=== PATIENT | female | born 1950 ===

== ENCOUNTER 2017-04-03 17:53 | Emergency (ER) | payer MEDICARE, MEDICAID ==
[2017-04-03 17:53] VITALS: BMI 29.8
[2017-04-03 20:18] LABS: BASO % 0.1 % (0.0-2.0); EOS % 0.1 % (0.0-4.0); HEMATOCRIT 38.8 % (34.0-47.0); LYMPH # 0.5 K/uL (1.0-4.3); LYMPH % 4.8 % (20.0-40.0); MEAN CELL VOLUME 93.2 fL (81.0-99.0); MEAN CORPUSCULAR HEMOGLOBIN 30.5 pg (27.0-31.0); MEAN CORPUSCULAR HGB CONC 32.7 g/dL (33.0-37.0); MEAN PLATELET VOLUME 10.3 fL (7.2-11.7); MONO # 0.8 K/uL (0.0-0.8); MONO % 6.9 % (0.0-10.0); PLATELET COUNT 257 K/uL (130-400)
[2017-04-03 20:29] LABS: CHLORIDE 101 mmol/L (98-107); SODIUM 139 mmol/L (132-148)
[2017-04-03 20:31] LABS: GFR AFRICAN-AMERICAN > 60
[2017-04-03 20:32] LABS: ALB/GLOB RATIO 1.1 (1.0-2.1); ALKALINE PHOSPHATASE 68 U/L (38-126); ALT/SGPT 35 U/L (9-52); AST/SGOT 35 U/L (14-36); BILIRUBIN,TOTAL 0.9 mg/dL (0.2-1.3); BLOOD UREA NITROGEN 17 mg/dL (7-17); CALCIUM 8.2 mg/dl (8.6-10.4); CARBON DIOXIDE 23 mmol/L (22-30); GLUCOSE,RANDOM 142 mg/dL (65-105); TOTAL PROTEIN 8.8 g/dL (6.3-8.3)
--- NOTE | 2017-04-03 20:47 | C.PDOC ---
History Of Present Illness Patient presents to the ER with a complaint of nausea and vomiting that began today. Patient states she feels weak and tired. Denies fever and chills. Time Seen by Provider: 04/03/17 20:08 Chief Complaint (Nursing): Abdominal Pain History Per: Patient History/Exam Limitations: no limitations Onset/Duration Of Symptoms: Hrs (Began today) Current Symptoms Are (Timing): Still Present Context: Other (Unknown) Severity: Moderate Pain Scale Rating Of: 4 Radiation Of Pain To:: None Quality Of Discomfort: Other (Weak/Tired) Associated Symptoms: Nausea, Vomiting. denies: Fever, Chills Exacerbating Factors: None Alleviating Factors: None Last Bowel Movement: Other (Unknown) Recent travel outside of the [place]: No Additional History Per: Family Abnormal Vaginal Bleeding: No Past Medical History Reviewed: Historical Data, Nursing Documentation, Vital Signs Vital Signs: Last Vital Signs Temp 98.2 F 04/03/17 18:46 Pulse 82 04/03/17 18:46 Resp 18 04/03/17 18:46 BP 100/64 04/03/17 18:46 Pulse Ox 95 04/03/17 21:48 - Medical History PMH: HTN, Hypercholesterolemia - [facility] Procedures DX ULTRASOUND-HEART (05/14/13) Family History: States: No Known Family Hx - Social History Hx Alcohol Use: No Hx Substance Use: No - Immunization History Hx Tetanus Toxoid Vaccination: No Review Of Systems Constitutional: Negative for: Fever, Chills ENT: Negative for: Throat Pain Cardiovascular: Negative for: Chest Pain Respiratory: Negative for: Shortness of Breath Gastrointestinal: Positive for: Nausea, Vomiting Musculoskeletal: Negative for: Back Pain Skin: Negative for: Rash, Lesions, Jaundice Neurological: Negative for: Weakness Psych: Positive for: Anxiety Physical Exam - Physical Exam Appears: Non-toxic Skin: Warm, Dry Head: Normacephalic Oral Mucosa: Moist Neck: Supple Chest: Symmetrical, No Tenderness Cardiovascular: Rhythm Regular, No Murmur Respiratory: No Rales, No Rhonchi, No Wheezing Gastrointestinal/Abdominal: Soft, Tenderness (Diffuse), No Guarding, No Rebound Back: Normal Inspection Extremity: Normal ROM Extremity: Bilateral: Atraumatic, Normal Color And Temperature Neurological/Psych: Oriented x3, Normal Speech Gait: Steady ED Course And Treatment - Laboratory Results Result Diagrams: 04/03/17 20:11 04/03/17 20:11 O2 Sat by Pulse Oximetry: 95 (Room air) Pulse Ox Interpretation: Normal Progress Note: Blood work ordered Reevaluation Time: 00:36 Reassessment Condition: Improved Disposition Counseled Patient/Family Regarding: Studies Performed, Diagnosis, Need For Followup - Disposition Referrals: Jean Claude Glass MD [Staff Provider] - Disposition Time: 20:47 Condition: FAIR Prescriptions: Metronidazole [Flagyl] 500 mg PO TID #21 tablet Ondansetron ODT [Zofran ODT] 1 odt PO BID PRN #10 odt PRN Reason: Nausea/Vomiting Instructions: Abdominal Pain (ED), Gas and Bloating (ED) - Clinical Impression Clinical Impression: Abdominal pain, Nausea - Scribe Statement The provider has reviewed the documentation as recorded by the Scribwyatt Romo All medical record entries made by the Scribe were at my direction and personally dictated by me. I have reviewed the chart and agree that the record accurately reflects my personal performance of the history, physical exam, medical decision making, and the department course for this patient. I have also personally directed, reviewed, and agree with the discharge instructions and disposition.
[2017-04-03] MEDS ORDERED: Potassium Chloride 10 mEq ER Tab PO STA (22:31)
[2017-04-03] MEDS ORDERED: Morphine 4 MG/ML VIAL IV STA (22:32)
[2017-04-03] MEDS ORDERED: Sodium Chloride 0.9% 1,000 ML IV ONE (22:33)
[2017-04-03] MEDS ORDERED: Sodium Chloride 0.9% 1,000 ML ONE (22:37)
[2017-04-03] MEDS ORDERED: Potassium Chloride 20 mEq ER Tab PO ONE (22:37)
[2017-04-03] MEDS ORDERED: Iohexol 300 100 ML IJ ONE (22:45)
[2017-04-03 23:16] LABS: NEUTROPHIL 81 % (50-75); TOTAL CELLS COUNTED 100
[2017-04-03 23:17] LABS: LARGE PLATELETS PRESENT; SMUDGE CELLS PRESENT
--- NOTE | 2017-04-04 00:35 | CT ---
EXAM: CT Abdomen and Pelvis With Intravenous Contrast CLINICAL HISTORY: 67 years old, female; Pain; Abdominal pain; Additional info: Abd pain, ruq TECHNIQUE: Axial computed tomography images of the abdomen and pelvis with intravenous contrast. This CT exam was performed using one or more of the following dose reduction techniques: automated exposure control, adjustment of the mA and/or kV according to patient size, and/or use of iterative reconstruction technique. Coronal and sagittal reformatted images were created and reviewed. CONTRAST: 100 mL of [id number] administered intravenously. COMPARISON: No relevant prior studies available. FINDINGS: Lower thorax: There is minimal bibasilar atelectasis. ABDOMEN: Liver: There is a sub-CM hypodensity in the left lobe of the liver which is too small to adequately characterize. Gallbladder and bile ducts: The gallbladder is normal. No calcified stones. No ductal dilation. Pancreas: The pancreas is normal. No ductal dilation. Spleen: The spleen is normal. Adrenals: The adrenal glands are normal. Kidneys and ureters: There is a 13 mm calculus in the extrarenal pelvis of the left kidney. A smaller 6 mm calculus is also present in one of the lower pole calyces. There is no evidence of hydronephrosis. Stomach and bowel: Stomach is partially decompressed and grossly unremarkable. There is fluid in the rectum compatible with diarrhea. There is no evidence of intestinal obstruction. No mucosal thickening. Appendix: A normal appendix is identified. PELVIS: Bladder: Bladder is partially decompressed and grossly unremarkable. Reproductive: There are multiple small calcifications in the uterus suggesting calcified fibroids. ABDOMEN and PELVIS: Intraperitoneal space: There is no evidence of free intraperitoneal fluid. There is no free intraperitoneal air. Bones/joints: No acute fracture. No dislocation. Soft tissues: Unremarkable. Vasculature: The aorta demonstrates mild atherosclerotic calcification. No abdominal aortic aneurysm. Lymph nodes: There is no evidence of lymphadenopathy. IMPRESSION: No acute findings.
[2017-04-04 01:04] VITALS: BP 99/51; PULSE 80; RESP 20; TEMP 98.1; O2SAT 100
== END 2017-04-04 01:03 | disposition home or self-care (01) ==
LOC: C.ER 17:53
DX: R11.2 Nausea with vomiting, unspecified (principal); R10.84 Generalized abdominal pain

== ENCOUNTER 2017-04-05 15:25 | Inpatient (IN) | payer MEDICARE, MEDICAID ==
[2017-04-05 15:25] VITALS: BMI 29.8
--- NOTE | 2017-04-05 16:02 | C.PDOC ---
History Of Present Illness <Aisha Hubbard - Last Filed: 04/05/17 17:28> <Berenice Copeland - Last Filed: 04/05/17 17:29> 67-year-old female, presents to the emergency departmnent, referred by PMD for admission for intractable abdominal pain. Pain is epigastric, localized and persistent in nature, that is associated with nausea. No fever, vomiting or diarrhea. Patient seen on 04/[address] and labs. Patient states she has a Hx of PUD but is not on any GI medication. REFERRED BY PMD FOR ADMISSION INTRACT ABD PAIN. EPIG, LOCALIZED, PERSISTENT. + NAUSEA. NO FEVER, V/D. SEEN 04/03 FOR SAME, NEG CT AND LABS. PS HO PUD BUT NOT ON GI MEDS. EXAM MILD DIST NON TOXIC ABD MILD EPIG TEND SOFT NO R/G REMAINDE RNEG (Berenice Copeland) <Aisha Hubbard - Last Filed: 04/05/17 17:28> History Per: Patient History/Exam Limitations: no limitations <Berenice Copeland - Last Filed: 04/05/17 17:29> Time Seen by Provider: 04/05/17 15:40 Chief Complaint (Nursing): Abdominal Pain Past Medical History Reviewed: Historical Data, Nursing Documentation, Vital Signs - Medical History PMH: HTN, Hypercholesterolemia Family History: States: Unknown Family Hx - Social History Hx Alcohol Use: No Hx Substance Use: No - Immunization History Hx Tetanus Toxoid Vaccination: No <Berenice Copeland - Last Filed: 04/05/17 17:29> Vital Signs: Last Vital Signs Temp 98.5 F 04/05/17 15:35 Pulse 55 L 04/05/17 15:35 Resp 18 04/05/17 15:35 BP 126/77 04/05/17 15:35 Pulse Ox 98 04/05/17 17:27 - [facility] Procedures DX ULTRASOUND-HEART (05/14/13) Review Of Systems Except As Marked, All Systems Reviewed And Found Negative. Constitutional: Negative for: Fever, Chills Gastrointestinal: Positive for: Nausea, Abdominal Pain. Negative for: Vomiting , Diarrhea Musculoskeletal: Negative for: Back Pain Skin: Negative for: Rash Neurological: Negative for: Headache, Dizziness <Berenice Copeland - Last Filed: 04/05/17 17:29> Physical Exam - Physical Exam Appears: Non-toxic, No Acute Distress Skin: Normal Color, Warm, Dry Head: Atraumatic, Normacephalic Eye(s): bilateral: Normal Inspection, PERRL, EOMI Nose: Normal Throat: Normal Neck: Normal Cardiovascular: Rhythm Regular Respiratory: Normal Breath Sounds Gastrointestinal/Abdominal: Soft, Tenderness (mild, epigastric), No Guarding, No Rebound Back: Normal Inspection Extremity: Normal ROM Neurological/Psych: Oriented x3, Normal Speech <Berenice Copeland Last Filed: 04/05/17 17:29> ED Course And Treatment - Laboratory Results Result Diagrams: 04/05/17 16:02 04/05/17 16:02 <Aisha Hubbard - Last Filed: 04/05/17 17:28> - Laboratory Results Result Diagrams: 04/05/17 16:02 04/05/17 16:02 ECG: Interpreted By Me ECG Rhythm: Sinus Bradycardia ECG Interpretation: Normal Rate From EC O2 Sat by Pulse Oximetry: 98 <Berenice Copeland Filed: 04/05/17 17:29> Progress - Data Reviewed Data Reviewed: Lab, Diagnostic imaging, EKG, Old records <Berenice Copeland Last Filed: 04/05/17 17:29> Disposition <Aisha Hubbard Last Filed: 04/05/17 17:28> Counseled Patient/Family Regarding: Studies Performed, Diagnosis - Disposition Disposition Time: 16:01 - POA Present On Arrival: None <Berenice Copeland Filed: 04/05/17 17:29> - Disposition Disposition: HOSPITALIZED Condition: STABLE - Clinical Impression Clinical Impression: Abdominal pain, UTI (urinary tract infection) <Aisha Hubbard - Last Filed: 04/05/17 17:28> - Scribe Statement The provider has reviewed the documentation as recorded by the Scribe <Berenice Copeland Filed: 04/05/17 17:29> - Scribe Statement Sudha Gregory All medical record entries made by the Scribe were at my direction and personally dictated by me. I have reviewed the chart and agree that the record accurately reflects my personal performance of the history, physical exam, medical decision making, and the department course for this patient. I have also personally directed, reviewed, and agree with the discharge instructions and disposition. (Berenice Copeland) Decision To Admit <Aisha Hubbard - Last Filed: 04/05/17 17:28> - Pt Status Changed To: Hospital Disposition Of: Observation - . Bed Request Type: Regular Admitting Physician: Jean Claude Glass <Berenice Copeland - Last Filed: 04/05/17 17:29> - . Patient Diagnosis: Abdominal pain, UTI (urinary tract infection)
[2017-04-05] MEDS ORDERED: Morphine 4 MG/ML VIAL ONE (16:05)
[2017-04-05] MEDS ORDERED: Sodium Chloride 0.9% 1,000 ML ONE (16:05)
[2017-04-05 16:13] LABS: BASO % 0.3 % (0.0-2.0); HEMATOCRIT 35.9 % (34.0-47.0); LYMPH % 15.1 % (20.0-40.0); MEAN CELL VOLUME 92.7 fL (81.0-99.0); MEAN CORPUSCULAR HEMOGLOBIN 29.9 pg (27.0-31.0); MEAN CORPUSCULAR HGB CONC 32.2 g/dL (33.0-37.0); MEAN PLATELET VOLUME 10.2 fL (7.2-11.7); MONO # 0.7 K/uL (0.0-0.8); MONO % 5.4 % (0.0-10.0); WHITE BLOOD COUNT 13.4 K/uL (4.8-10.8)
[2017-04-05] MEDS ORDERED: Sodium Chloride 0.9% 1,000 ML IV SCH (16:15)
[2017-04-05 16:16] LABS: CHLORIDE 101 mmol/L (98-107); POTASSIUM 3.6 mmol/L (3.6-5.2); SODIUM 138 mmol/L (132-148)
[2017-04-05 16:18] LABS: GFR AFRICAN-AMERICAN > 60
[2017-04-05 16:19] LABS: ALB/GLOB RATIO 1.1 (1.0-2.1); ALKALINE PHOSPHATASE 69 U/L (38-126); ALT/SGPT 33 U/L (9-52); AST/SGOT 26 U/L (14-36); BILIRUBIN,TOTAL 0.6 mg/dL (0.2-1.3); BLOOD UREA NITROGEN 12 mg/dL (7-17); CALCIUM 8.6 mg/dl (8.6-10.4); CARBON DIOXIDE 24 mmol/L (22-30); GLUCOSE,RANDOM 106 mg/dL (65-105); TOTAL PROTEIN 8.4 g/dL (6.3-8.3)
[2017-04-05 16:48] LABS: RBC URINE 33 /hpf (0-3); URINE BACTERIA FEW (<OCC); URINE BILIRUBIN NEGATIVE (NEGATIVE); URINE COLOR Yellow (YELLOW); URINE GLUCOSE (UA) NORMAL (Normal); URINE KETONE NEGATIVE (NEGATIVE); URINE PROTEIN NEGATIVE (NEGATIVE); URINE UROBILINOGEN NORMAL mg/dL (0.2-1.0); WBC URINE 14 /hpf (0-5)
--- NOTE | 2017-04-05 16:48 | RAD ---
HISTORY: ADMISSION, ABD PAIN COMPARISON: 01/05/2017 TECHNIQUE: Chest PA and lateral FINDINGS: LUNGS: Mild left basilar atelectasis and and or developing infiltrate. . Questionable small left effusion. Minor right basilar atelectasis. . PLEURA: No effusion. No evidence of bulla pneumothorax. John. CARDIOVASCULAR: Heart size within range of normal. OSSEOUS STRUCTURES: No significant abnormalities. VISUALIZED UPPER ABDOMEN: Normal. OTHER FINDINGS: None. IMPRESSION: Left lower lobe atelectasis and/or developing infiltrate. Questionable small left effusion. . Minor right basilar atelectasis
[2017-04-05 16:50] LABS: URINE BLOOD 3+ (NEGATIVE); URINE LEUKOCYTE ESTERASE 1+ Leu/uL (Negative)
[2017-04-05] MEDS ORDERED: cefTRIAXone IV 1 gm in Dextros 50 ML IV STA (16:54)
[2017-04-05] MEDS ORDERED: cefTRIAXone IV 1 gm in Dextros 50 ML IVPB ONE (17:23)
[2017-04-05 22:42] VITALS: RESP 20
[2017-04-05] MEDS ORDERED: HYDROmorphone 1 mg/ml ISec IVP PRN (23:41)
[2017-04-05] MEDS ORDERED: Sodium Chloride 0.45% 1,000 ML IV SCH (23:45)
[2017-04-06] MEDS: metroNIDAZOLE IV 500 mg/100 ml 500 MG/100 ML BAG IVPB SCH ×3 (00:24→16:42)
[2017-04-06] MEDS: Sodium Chloride 0.45% 1,000 ML IV SCH ×3 (00:32→16:42)
[2017-04-06 08:11] LABS: BASO % 0.3 % (0.0-2.0); EOS % 0.4 % (0.0-4.0); HEMATOCRIT 31.2 % (34.0-47.0); LYMPH # 1.7 K/uL (1.0-4.3); LYMPH % 18.7 % (20.0-40.0); MEAN CELL VOLUME 92.7 fL (81.0-99.0); MEAN CORPUSCULAR HEMOGLOBIN 30.6 pg (27.0-31.0); MEAN PLATELET VOLUME 10.1 fL (7.2-11.7); MONO # 0.8 K/uL (0.0-0.8); MONO % 8.3 % (0.0-10.0); RED CELL DISTRIBUTION WIDTH 12.9 % (11.5-14.5); WHITE BLOOD COUNT 9.1 K/uL (4.8-10.8)
[2017-04-06 08:51] LABS: ALKALINE PHOSPHATASE 59 U/L (38-126); ALT/SGPT 53 U/L (9-52); AST/SGOT 35 U/L (14-36); BILIRUBIN,TOTAL < 0.1 mg/dL (0.2-1.3); BLOOD UREA NITROGEN 10 mg/dL (7-17); CALCIUM 8.1 mg/dl (8.6-10.4); CARBON DIOXIDE 26 mmol/L (22-30); CHLORIDE 101 mmol/L (98-107); GFR AFRICAN-AMERICAN > 60; GLUCOSE,RANDOM 110 mg/dL (65-105); POTASSIUM 3.3 mmol/L (3.6-5.2); SODIUM 135 mmol/L (132-148); TOTAL PROTEIN 6.9 g/dL (6.3-8.3)
[2017-04-06 09:00] LABS: THYROID STIMULATING HORMONE 2.48 mIU/L (0.46-4.68)
[2017-04-06] MEDS: Potassium Chloride 20 mEq ER Tab PO SCH (10:53)
--- NOTE | 2017-04-06 12:52 | CP.PCM.CON ---
History of Present Illness - History of Present Illness History of Present Illness: INFECTIOUS DISEASE CONSULT; 67-year-old female with hypertension, nephrotic syndrome, hypercholesterolemia,? PUD, Was referred by his private M.D. to ER for admission because of intractable abdominal pain with nausea and vomiting. Patient was here in [facility] ER on 04/03/17 for similar complaints and underwent CT scan of the abdomen and pelvis with IV contrast which showed 13 mm calculi in extrarenal pelvis of the left kidney. Also 6 mm calculus was seen in the lower pole calyces. No hydronephrosis was seen. Patient had diarrhea at that time and patient was discharged on by mouth Flagyl 500 3 times a day for 5 days with by mouth Zofran 1 tablet by mouth twice a day when necessary. Patient went to see her private M.D. because the abdominal pain increased and her nausea persisted but no vomiting. Patient was found to have increasing leukocytosis with WBC of 13.4 and urinalysis showed microscopic hematuria with 3 + blood and few bacteria. Patient was empirically started on IV Rocephin 1 g once a day by the PMD. Infectious disease consultation requested by DR NGO for abdominal pain and urosepsis. Urine cultures today reported growing gram-negative rods. PATIENT DENIES ANY FEVER OR CHILLS. PATIENT DENIES ANY SAURABH HEMATURIA. pATIENT DENIES ANY COUGH OR EXPECTORATION. PATIENT DENIES ANY VAGINAL DISCHARGE. PATIENT DENIES ANY PREVIOUS HISTORY OF ABDOMINAL SURGERY EXCEPT THAT FEW MONTHS AGO SHE HAD A UTI/AND HEMATURIA. HISTORY OBTAINED BY HER GRANDDAUGHTER PATIENT SPEAKS MAINLY GHANAIAN.. PATIENT DENIES ANY RECENT TRAVEL OR SICK CONTACT. ALLERGY; ASA . PMH: HTN, Hypercholesterolemia,NEPHROTIC SYNDROME, ? PUD. Family History: States: Unknown Family Hx - Social History Hx Alcohol Use: No Hx Substance Use: No NO SMOKING - Immunization History Hx Tetanus Toxoid Vaccination: No INFLUENZA VACCINATION; NO PNEUMOCOCCAL VACCINATION; NOT SURE Review of Systems - Constitutional Constitutional: absent: Chills, Fever, Weight Loss - EENT Eyes: Requires Corrective Lenses. absent: Other Visual Disturbances Ears: absent: Dizziness Nose/Mouth/Throat: absent: Mouth Lesions - Cardiovascular Cardiovascular: absent: Chest Pain, Dyspnea - Respiratory Respiratory: absent: Cough, Hemoptysis - Gastrointestinal Gastrointestinal: Abdominal Pain (MID ABDOMEN AND LEFT UPPER QUADRANT/FLANK REGION.), Constipation, Nausea. absent: Diarrhea, Vomiting - Genitourinary Genitourinary: Flank Pain, Voiding Freq/Small Amts. absent: Dysuria, Hematuria , Pyuria, Urinary Hesitance, Hx /Renal Surgery - Neurological Neurological: absent: Frequent Falls, Headaches - Hematologic/Lymphatic Hematologic: As Per HPI. absent: Easy Bleeding, Easy Bruising, Lymphadenopathy Past Patient History - Past Medical History & Family History Past Medical History?: Yes - Past Social History Smoking Status: Never Smoked - CARDIAC Hx Cardiac Disorders: Yes Hx Hypercholesterolemia: Yes Hx Hypertension: Yes - PULMONARY Hx Respiratory Disorders: No - NEUROLOGICAL Hx Neurological Disorder: No - HEENT Hx HEENT Problems: No - RENAL Hx Chronic Kidney Disease: No - ENDOCRINE/METABOLIC Hx Endocrine Disorders: No - HEMATOLOGICAL/ONCOLOGICAL Hx Blood Disorders: No - INTEGUMENTARY Hx Dermatological Problems: No - MUSCULOSKELETAL/RHEUMATOLOGICAL Hx Musculoskeletal Disorders: No Hx Falls: No - GASTROINTESTINAL Hx Gastrointestinal Disorders: Yes Hx Hemorrhoids: Yes - GENITOURINARY/GYNECOLOGICAL Hx Genitourinary Disorders: No - PSYCHIATRIC Hx Psychophysiologic Disorder: No Hx Substance Use: No - SURGICAL HISTORY Hx Surgeries: Yes Hx Tubal Ligation: Yes - ANESTHESIA Hx Anesthesia: Yes Hx Anesthesia Reactions: No Hx Malignant Hyperthermia: No Has any member of the family had a problem w/ anesthesia?: No Meds Allergies/Adverse Reactions: Allergies Allergy/AdvReac Type Severity Reaction Status Date / Time aspirin Allergy Verified 01/05/17 09:26 - Medications Medications: Current Medications Escitalopram Oxalate (Lexapro) 10 mg PO HS [facility] Heparin Sodium (Porcine) (Heparin) 5,000 units SC Q12 [facility] Last Admin: 04/06/17 10:53 Dose: 5,000 units Hydromorphone HCl (Dilaudid) 1 mg IVP Q6H PRN PRN Reason: Pain, moderate (4-7) Last Admin: 04/06/17 04:15 Dose: 1 mg Ceftriaxone Sodium 1 gm/ (Sodium Chloride) 100 mls @ 100 mls/hr IVPB DAILY [facility] Last Admin: 04/06/17 10:51 Dose: 100 mls/hr Metronidazole (Flagyl) 500 mg in 100 mls @ 100 mls/hr IVPB Q8H [facility] Last Admin: 04/06/17 08:52 Dose: 100 mls/hr Sodium Chloride (Sodium Chloride 0.45%) 1,000 mls @ 80 mls/hr IV .[id number] [facility] Last Admin: 04/06/17 00:32 Dose: 80 mls/hr Lisinopril (Zestril) 10 mg PO DAILY [facility] Last Admin: 04/06/17 10:54 Dose: 10 mg Ondansetron HCl (Zofran Inj) 4 mg IVP Q8H PRN PRN Reason: Nausea/Vomiting Pantoprazole Sodium (Protonix Inj) 40 mg IVP DAILY [facility] Last Admin: 04/06/17 10:54 Dose: 40 mg Pneumococcal Polyvalent Vaccine (Pneumovax 23 Vaccine) 0.5 ml IM .ONCE ONE Stop: 04/07/17 10:01 Potassium Chloride (K-Dur 20 Meq Er Tab) 40 meq PO DAILY [facility] Stop: 04/07/17 10:01 Last Admin: 04/06/17 10:53 Dose: 40 meq Physical Exam - Head Exam Head Exam: NORMAL INSPECTION - Eye Exam Eye Exam: EOMI, PERRL - ENT Exam ENT Exam: Mucous Membranes Moist - Respiratory Exam Respiratory Exam: Clear to Auscultation Bilateral, NORMAL BREATHING PATTERN - Cardiovascular Exam Cardiovascular Exam: REGULAR RHYTHM, +S1, +S2 - GI/Abdominal Exam GI & Abdominal Exam: Normal Bowel Sounds, Soft, Tenderness (MID ABDOMEN/LEFT UPPER QUADRANT.). absent: Organomegaly - Extremities Exam Extremities exam: Positive for: normal capillary refill, pedal pulses present. Negative for: calf tenderness, full ROM, pedal edema - Neurological Exam Neurological exam: Alert, CN II-XII Intact, Oriented x3, Reflexes Normal - Psychiatric Exam Psychiatric exam: Normal Mood - Skin Skin Exam: Normal Color, Warm Results - Vital Signs Recent Vital Signs: Last Vital Signs Temp 97.4 F L 04/06/17 08:41 Pulse 62 04/06/17 08:41 Resp 20 04/06/17 08:41 BP 109/67 04/06/17 08:41 Pulse Ox 97 04/06/17 08:41 - Labs Result Diagrams: 04/06/17 08:02 04/06/17 08:02 Labs: Laboratory Results - last 24 hr 04/06/17 04/06/17 08:02 08:02 WBC 9.1 RBC 3.36 L Hgb 10.3 L Hct 31.2 L MCV 92.7 MCH 30.6 MCHC 33.0 RDW 12.9 Plt Count 214 MPV 10.1 Neut % (Auto) 72.3 Lymph % (Auto) 18.7 L [place] % (Auto) 8.3 Eos % (Auto) 0.4 Baso % (Auto) 0.3 Neut # 6.6 Lymph # 1.7 [place] # 0.8 Eos # 0.0 Baso # 0.0 Sodium 135 Potassium 3.3 L Chloride 101 Carbon Dioxide 26 Anion Gap 11 BUN 10 Creatinine 0.9 Est GFR ( Amer) > 60 Est GFR (Non-Af Amer) > 60 Random Glucose 110 H Calcium 8.1 L Total Bilirubin < 0.1 L AST 35 ALT 53 H D Alkaline Phosphatase 59 Total Protein 6.9 Albumin 3.5 D Globulin 3.4 Albumin/Globulin Ratio 1.0 TSH 3rd Generation 2.48 - Imaging and Cardiology Chest x-ray Status: Report reviewed by me (no active disease) Assessment & Plan (1) Acute pyelonephritis Assessment and Plan: pancultures. Urine culture showing gram-negative josefa.. CT of the abdomen and pelvis 04/03/17; report noted. DC IV ceftriaxone in view of elevated transaminases. DC IV Flagyl in view of nausea. Start IV cefepime 1 g every 8 hourly for better gram-negative coverage. 04/06/17. Renal ultrasound/pelvic ultrasound r/o nephrolithiasis. Follow-up urine cultures and blood cultures to adjust antibiotics. Status: Acute (2) Abdominal pain Assessment and Plan: hx of ? PUD. ON PROTONX IV PER PMD STOOLS FOR OB X1 Status: Acute (3) UTI (urinary tract infection) Assessment and Plan: 04/06/19 ; URINE CULTURE SHOWING GRAM-NEGATIVE RODS. PATIENT STARTED ON iv CEFEPIME1 G EVERY 8 HOURLY FOR BETTER PSEUDOMONAL AND ESCHERICHIA COLI COVERAGE 04/06/17 dc iv CEFTRIAXONE. Status: Acute (4) Hypertension Status: Acute (5) Nephrotic syndrome Assessment and Plan: URINE FOR MICROALBUMIN RANDOM. Status: Acute (6) Depression Status: Acute
--- NOTE | 2017-04-06 16:45 | CARD ---
APPROVED REPORT EKG Measurement Heart [id number] <Conclusion> Sinus bradycardia Otherwise normal ECG
[2017-04-06] MEDS ORDERED: HYDROmorphone 1 mg/ml ISec IVP PRN ×2 (18:14→18:30)
--- NOTE | 2017-04-06 19:07 | HP ---
HISTORY OF PRESENT ILLNESS: The patient is a 67-year-old female with history of hypertension, history of nephrotic syndrome. The patient came to my office complaining of severe abdominal pain and nause a and vomiting and also fever. The patient stated having been in the Emergency Room 2 days ago and wa s discharged on medication, but the pain persisted and worsened and. Denies weakness and fever. The patient was seen in my office and I had recommended patient to go to the Emergency Room for admission . ALLERGIES: The patient is allergic to ASPIRIN. PAST MEDICAL HISTORY: As I mentioned, hypertension and also history of nephrotic syndrome. FAMILY HISTORY: No inherited disease. SOCIAL HISTORY: No smoking or alcohol abuse. REVIEW OF SYSTEMS: RESPIRATORY: The patient is having some shortness of breath with exertion. CARDIOVASCULAR: Denied any chest pain. GASTROINTESTINAL: Abdominal pain and nausea and vomiting but mostly nausea and. GENITOURINARY: No dysuria. CONSTITUTIONAL: The patient feels weak. PHYSICAL EXAMINATION: VITAL SIGNS: On admission, the blood pressure was 152/82, pulse 61, respiration 20, temperature was 9 8.4. EYES: PERRLA. NECK: Supple. No JVD. LUNGS: Rhonchi noted. HEART: Regular rate and rhythm. Positive murmur. ABDOMEN: Soft. Tenderness in the epigastric area and also to the the right flank. EXTREMITIES: There is no edema. LABORATORY DATA: The patient had some tests done. WBC 13.4, hemoglobin 11.6, hematocrit 35.9, and pl atelet is 253. Chemistry: Sodium 138, potassium 3.6, chloride 101, bicarbonate 24, BUN 12, creatini ne 0.7, glucose is 106, AST is 26, ALT 33, calcium 8.6. The troponin is less than 0.012. The patien t had a urine test done. It showed that the pH is 5, urine blood is 3+, nitrite negative and leukocyt e is 1. The WBC is 14 and the RBC is 33. The urine bacteria . ASSESSMENT AND PLAN: The patient will be admitted with diagnoses of: 1. Pyelonephritis. 2. Intractable abdominal pain. 3. Hypertension. 4. Nephrotic syndrome. 5. Depression. The patient will be put on antibiotic therapy and also will have a consult with Dr. Arun López. The patient will be admitted today. ADDENDUM: The patient, on a previous visit to the Emergency Room, had a CAT scan that has shown a sma ll cystic in the kidney, but of the CAT scan was somewhat unremarkable. Jean Claude Glass MD cc: [id number] TT: 04/06/2017 19:07:34 ln
[2017-04-06] MEDS: Cefepime IV 1 gm in Dextrose 1 GM/50 ML BAG IVPB SCH (23:05)
[2017-04-07] MEDS: Sodium Chloride 0.45% 1,000 ML IV SCH ×2 (01:45→14:04)
[2017-04-07] MEDS: Cefepime IV 1 gm in Dextrose 1 GM/50 ML BAG IVPB SCH ×3 (06:56→21:28)
[2017-04-07 07:31] LABS: BASO % 0.4 % (0.0-2.0); EOS % 0.3 % (0.0-4.0); HEMATOCRIT 30.9 % (34.0-47.0); LYMPH # 2.4 K/uL (1.0-4.3); LYMPH % 23.4 % (20.0-40.0); MEAN CELL VOLUME 92.8 fL (81.0-99.0); MEAN CORPUSCULAR HEMOGLOBIN 30.7 pg (27.0-31.0); MEAN CORPUSCULAR HGB CONC 33.1 g/dL (33.0-37.0); MEAN PLATELET VOLUME 10.5 fL (7.2-11.7); MONO % 9.5 % (0.0-10.0); RED CELL DISTRIBUTION WIDTH 12.6 % (11.5-14.5); WHITE BLOOD COUNT 10.2 K/uL (4.8-10.8)
[2017-04-07 07:54] LABS: CHLORIDE 101 mmol/L (98-107); POTASSIUM 3.5 mmol/L (3.6-5.2); SODIUM 135 mmol/L (132-148)
[2017-04-07 07:57] LABS: GFR AFRICAN-AMERICAN > 60
[2017-04-07 07:58] LABS: BLOOD UREA NITROGEN 8 mg/dL (7-17); CARBON DIOXIDE 25 mmol/L (22-30); GLUCOSE,RANDOM 105 mg/dL (65-105)
[2017-04-07] MEDS ORDERED: Pneumococcal 23-Valent Vaccine IM ONE (10:00)
[2017-04-07] MEDS: Potassium Chloride 20 mEq ER Tab PO SCH (11:33)
--- NOTE | 2017-04-07 11:35 | US ---
HISTORY: abdominal pain COMPARISON: Comparison is made to the previous study dated 08/26/2013 TECHNIQUE: Transabdominal and endovaginal ultrasound examination of the pelvis was obtained. FINDINGS: UTERUS: Measures 9.8 x 4.7 x 6 cm. Heterogeneous uterus is again noted. There is heterogeneous lesion presumably represents fibroid measures 1.5 x 1.31 x1.4 centimeter. There is also partially calcified fibroids measures 1.6 x 1.6 x 1.6 centimeter at the lower uterine segment. ENDOMETRIUM: Measures heterogeneous abnormal a thick measures 8.8 mm in diameter. CERVIX: No cervical abnormality identified. RIGHT OVARY: Measures 2.6 x 1.6 x 2.6 cm. No solid mass. Normal flow. LEFT OVARY: Measures 2.2 x 1.1 x 2 cm. No solid mass. Normal flow. FREE FLUID: No significant free fluid noted. OTHER FINDINGS: None. IMPRESSION: Heterogeneous uterus contains at least 2 fibroids as described above. Heterogeneous thick endometrium measures up to 8.8 millimeter. The possibility of endometrial hyperplasia or neoplasm should be excluded. Further assessment is recommended. No evidence of suspicious lesion in the a ovaries. The ovaries are mildly enlarged for the patient's age.
--- NOTE | 2017-04-07 11:41 | US ---
PROCEDURE: Ultrasound of the Kidneys HISTORY: NEPHROLITHIASIS COMPARISON: Comparison is made to the previous CT dated 04/03/2017. Comparison is also made to the previous ultrasound of the kidneys dated 08/26/2013 TECHNIQUE: Sonogram of the kidneys. FINDINGS: RIGHT KIDNEY: Measures: 11.8 x 4.1 x 5 cm. Normal in size, contour and echogenicity. No stone, solid mass lesion or hydronephrosis visualized. LEFT KIDNEY: Measures: 9.2 x 4.9 x 4.7 cm. Normal in size, contour and echogenicity. There is nonobstructing stone at the left kidney mid to lower pole measures 10.7 millimeter. No evidence of hydronephrosis. OTHER FINDINGS: Incidentally noted are multiple gallstones. IMPRESSION: Nonobstructing left renal stone measures 10.7 millimeter. No evidence of hydronephrosis. Incidentally noted are multiple gallstones.
--- NOTE | 2017-04-07 13:12 | CP.PCM.PN ---
Subjective - Date & Time of Evaluation Date of Evaluation: 04/07/17 Time of Evaluation: 13:12 - Subjective Subjective: CHIEF COMPLAINTS TODAY : AFEBRILE, VS BP 123/62 C/O MID ABDOMINAL PAIN/LT. FLANK DENIES NAUSEA VOMITING. ROS. HEENT : N. Resp : No cough, wheezing ,pleuritic CP ,or hemoptysis Cardio : No anginal CP, PND, orthopnea, palpitation GI : No+VE ABDOMINAL PAIN, NO n/v ,diarrhea or GI bleeding . LACE INSPECTOR : No headache, vertigo, focal deficit. Musculoskel : No joint swelling , Derm : No rash Psych : Normal affect. Ext : No swelling ,calf pain PE. Pt. is alert awake in no distress. V.S As noted in the chart Head ,ear nose,throat and eyes : Normal. Neck : Supple with normal carotids. Lungs: Clear air entry. Heart : S1 & S2 normal with S4. No murmur. Abd : Soft MILD TENDERNESS EPIGASTRIC AND LEFT FLANK with HYPOACTIVE bowel sounds. Neuro : Moves all ext. with no localized deficit. Ext : No edema with intact pulses.Non tender calves Derm : No rashes or decubitus ulcer. LABS/RADIOLOGY: URINE CULTURE +VE E. COLI -JEFFREY,S' ABDOMINAL ULTRASOUND- LIMITED / RENAL US- NON-OBSTRUCTIVE LEFT RENAL STONE 10.7 CM. . nO HYDRONEPHROSIS. MULTIPLE GALLSTONES. PELVIC/T VAGINAL US - ? ENDOMETRIAL HYPERPLASIA VS NEOPLASM ASSESSMENT/PLAN : ABDOMINAL PAIN-PYELONEPHRITIS UROSEPSIS/LEFT RENAL CALCULI ENDOMETRIAL HYPERPLASIA R/O CA GALLSTONES-ASYMPTOMATIC. HTN. DEPRESSION. 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 Objective - Vital Signs/Intake and Output Vital Signs (last 24 hours): Temp Pulse Resp BP Pulse Ox 98.1 F 62 20 107/67 98 04/07/17 08:29 04/07/17 08:29 04/07/17 08:29 04/07/17 08:29 04/07/17 08:29 Intake and Output: 04/07/17 04/07/17 06:59 18:59 Intake Total 0 Balance 1920 - Medications Medications: Current Medications Escitalopram Oxalate (Lexapro) 10 mg PO HS ADRIANNE Last Admin: 04/06/17 23:07 Dose: 10 mg Heparin Sodium (Porcine) (Heparin) 5,000 units SC Q12 [facility] Last Admin: 04/07/17 11:32 Dose: 5,000 units Hydromorphone HCl (Dilaudid) 1 mg IVP Q6 PRN PRN Reason: Pain, moderate (4-7) Last Admin: 04/06/17 20:20 Dose: 1 mg Sodium Chloride (Sodium Chloride 0.45%) 1,000 mls @ 80 mls/hr IV .[id number] [facility] Last Admin: 04/07/17 01:45 Dose: Not Given Cefepime HCl (Maxipime Iv 1 Gm Premix) 1 gm in 50 mls @ 100 mls/hr IVPB Q8H [facility] Last Admin: 04/07/17 12:24 Dose: 100 mls/hr Lisinopril (Zestril) 10 mg PO DAILY [facility] Last Admin: 04/07/17 11:37 Dose: 10 mg Ondansetron HCl (Zofran Inj) 4 mg IVP Q8H PRN PRN Reason: Nausea/Vomiting Last Admin: 04/06/17 16:49 Dose: 4 mg Pantoprazole Sodium (Protonix Inj) 40 mg IVP DAILY [facility] Last Admin: 04/07/17 11:33 Dose: 40 mg - Labs Labs: 04/07/17 07:07 04/07/17 07:07 Assessment and Plan (1) Acute pyelonephritis Status: Acute (2) Abdominal pain Status: Acute (3) UTI (urinary tract infection) Status: Acute (4) Hypertension Status: Acute (5) Nephrotic syndrome Status: Acute (6) Depression Status: Acute
[2017-04-08] MEDS: Sodium Chloride 0.45% 1,000 ML IV SCH ×3 (02:03→18:07)
[2017-04-08] MEDS: Cefepime IV 1 gm in Dextrose 1 GM/50 ML BAG IVPB SCH ×3 (05:34→21:10)
--- NOTE | 2017-04-08 08:52 | PN ---
DATE: 04/07/2017 Today, patient is alert and awake with a decrease in abdomen pain and denies any shortness of breath or chest pain or palpitations. The patient has been having a bit of appetite. PHYSICAL EXAMINATION: VITAL SIGNS: The patient has a blood pressure of 107/67, pulse is 62, respirations 20, and temperature 98.1. HEENT: Head is normocephalic. NECK: Supple. No JVD. LUNGS: Clear. HEART: Regular rate and rhythm. ABDOMEN: Soft. Mild tenderness to the left flank and the hypogastric area. EXTREMITIES: There is no edema. LABORATORY DATA: sodium 135, potassium 3.5, chloride 101, bicarb is 25, BUN is 8, creatinine is 0.8, calcium 8. The patient had the urine culture. The urine culture is positive for E. coli sensitiv to Rocephin PLAN: We are going to continue Rocephin IV and continue the antibiotic, Rocephin, and also we are going to order the ultrasound of the abdomen and the kidneys. ____ the ultrasound did show nonobstructing left renal stone measuring 10.7 mm, no evidence of hydronephrosis and also there is a ____ . The abdominal ____ so that, as I mentioned before, the ____ Jean Claude Glass MD cc: [id number] TT: 04/07/2017 13:17:41 Confirmation # [id number] Dictation # [id number] MTDD
[2017-04-08 09:00] LABS: BASO # 0.1 K/uL (0.0-0.2); BASO % 0.5 % (0.0-2.0); EOS # 0.1 K/uL (0.0-0.7); EOS % 0.5 % (0.0-4.0); HEMATOCRIT 32.1 % (34.0-47.0); LYMPH # 2.9 K/uL (1.0-4.3); LYMPH % 26.8 % (20.0-40.0); MEAN CELL VOLUME 93.2 fL (81.0-99.0); MEAN CORPUSCULAR HEMOGLOBIN 30.1 pg (27.0-31.0); MEAN CORPUSCULAR HGB CONC 32.3 g/dL (33.0-37.0); MEAN PLATELET VOLUME 10.6 fL (7.2-11.7); MONO % 8.9 % (0.0-10.0); NRBC % 0.1 % (0.0-2.0); RED CELL DISTRIBUTION WIDTH 12.7 % (11.5-14.5); WHITE BLOOD COUNT 10.8 K/uL (4.8-10.8)
[2017-04-08 09:24] LABS: CHLORIDE 103 mmol/L (98-107); POTASSIUM 3.2 mmol/L (3.6-5.2); SODIUM 138 mmol/L (132-148)
[2017-04-08 09:26] LABS: GFR AFRICAN-AMERICAN > 60
[2017-04-08 09:27] LABS: ALB/GLOB RATIO 1.1 (1.0-2.1); ALKALINE PHOSPHATASE 52 U/L (38-126); ALT/SGPT 32 U/L (9-52); AST/SGOT 26 U/L (14-36); BILIRUBIN,TOTAL 0.6 mg/dL (0.2-1.3); BLOOD UREA NITROGEN 8 mg/dL (7-17); CARBON DIOXIDE 23 mmol/L (22-30); GLUCOSE,RANDOM 109 mg/dL (65-105); TOTAL PROTEIN 6.9 g/dL (6.3-8.3)
[2017-04-08 09:28] LABS: CALCIUM 8.1 mg/dl (8.6-10.4)
[2017-04-08] MEDS: Potassium Chloride 20 mEq ER Tab PO SCH ×2 (13:50→18:11)
--- NOTE | 2017-04-08 17:52 | PN ---
DATE: 04/08/2017 SUBJECTIVE: Today, the patient is alert and awake and oriented x 3 and has some abdominal pain, impr oving. No fever. PHYSICAL EXAMINATION: VITAL SIGNS: The patient has a blood pressure of 131/70, pulse 83, respirations 20, temperature 98.2 . NECK: Supple. No JVD. LUNGS: Clear. HEART: Regular rate and rhythm. ABDOMEN: Soft, some mild tenderness in the left flank and positive bowel sounds. No organomegaly. EXTREMITIES: There is no edema, but there is some pain and tenderness to the knees LABORATORY DATA: WBC 10.8, hemoglobin 10.4, hematocrit 32.1 and platelet is 240. Chemistries: [place] um 138, potassium 3.2, chloride 103, bicarbonate 23, BUN 8, creatinine is 0.8, glucose 119, calcium i s 8.1, albumin 2.5, ____ 2.3, ____ 6.9. PLAN: We are going to give potassium replacement and also continue antibiotic therapy. Microbiology has shown that the patient has a ____, the patient has Escherichia coli. The Escherichia coli is se nsitive to ceftriaxone, aztreonam, gentamicin. Now we are going to continue the ceftriaxone. Jean Claude Glass MD cc: [id number] TT: 04/08/2017 17:51:06 Confirmation # [id number] Dictation # [id number]
--- NOTE | 2017-04-08 19:37 | CP.PCM.PN ---
Subjective - Date & Time of Evaluation Date of Evaluation: 04/08/17 Time of Evaluation: 19:36 - Subjective Subjective: CHIEF COMPLAINTS TODAY : AFEBRILE, VSS C/O MID ABDOMINAL PAIN/LT. FLANK DENIES NAUSEA VOMITING. ROS. HEENT : N. Resp : No cough, wheezing ,pleuritic CP ,or hemoptysis Cardio : No anginal CP, PND, orthopnea, palpitation GI : No+VE ABDOMINAL PAIN, NO n/v ,diarrhea or GI bleeding . STATUS CONTROLLER : No headache, vertigo, focal deficit. Musculoskel : No joint swelling , Derm : No rash Psych : Normal affect. Ext : No swelling ,calf pain PE. Pt. is alert awake in no distress. V.S As noted in the chart Head ,ear nose,throat and eyes : Normal. Neck : Supple with normal carotids. Lungs: Clear air entry. Heart : S1 & S2 normal with S4. No murmur. Abd : Soft MILD TENDERNESS EPIGASTRIC AND LEFT FLANK with HYPOACTIVE bowel sounds. Neuro : Moves all ext. with no localized deficit. Ext : No edema with intact pulses.Non tender calves Derm : No rashes or decubitus ulcer. LABS/RADIOLOGY: URINE CULTURE +VE E. COLI -JEFFREY,S' ABDOMINAL ULTRASOUND- LIMITED / RENAL US- NON-OBSTRUCTIVE LEFT RENAL STONE 10.7 CM. . nO HYDRONEPHROSIS. MULTIPLE GALLSTONES. PELVIC/T VAGINAL US - ? ENDOMETRIAL HYPERPLASIA VS NEOPLASM ASSESSMENT/PLAN : ABDOMINAL PAIN-PYELONEPHRITIS UROSEPSIS/LEFT RENAL CALCULI ENDOMETRIAL HYPERPLASIA R/O CA GALLSTONES-ASYMPTOMATIC. HTN. DEPRESSION. 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 Objective - Vital Signs/Intake and Output Vital Signs (last 24 hours): Temp Pulse Resp BP Pulse Ox 98.6 F 68 20 127/68 97 04/08/17 16:00 04/08/17 16:00 04/08/17 16:00 04/08/17 16:00 04/08/17 16:00 Intake and Output: 04/08/17 04/09/17 18:59 06:59 Intake Total 910 Balance 910 - Medications Medications: Current Medications Escitalopram Oxalate (Lexapro) 10 mg PO HS ADRIANNE Last Admin: 04/07/17 21:27 Dose: 10 mg Heparin Sodium (Porcine) (Heparin) 5,000 units SC Q12 [facility] Last Admin: 04/08/17 10:43 Dose: 5,000 units Hydromorphone HCl (Dilaudid) 1 mg IVP Q6 PRN PRN Reason: Pain, moderate (4-7) Last Admin: 04/06/17 20:20 Dose: 1 mg Sodium Chloride (Sodium Chloride 0.45%) 1,000 mls @ 80 mls/hr IV .[id number] [facility] Last Admin: 04/08/17 18:07 Dose: 80 mls/hr Cefepime HCl (Maxipime Iv 1 Gm Premix) 1 gm in 50 mls @ 100 mls/hr IVPB Q8H [facility] Last Admin: 04/08/17 13:16 Dose: 100 mls/hr Lisinopril (Zestril) 10 mg PO DAILY [facility] Last Admin: 04/08/17 10:43 Dose: 10 mg Ondansetron HCl (Zofran Inj) 4 mg IVP Q8H PRN PRN Reason: Nausea/Vomiting Last Admin: 04/06/17 16:49 Dose: 4 mg Pantoprazole Sodium (Protonix Inj) 40 mg IVP DAILY [facility] Last Admin: 04/08/17 10:43 Dose: 40 mg - Labs Labs: 04/08/17 08:56 04/08/17 08:56 Assessment and Plan (1) Acute pyelonephritis Status: Acute (2) Abdominal pain Status: Acute (3) UTI (urinary tract infection) Status: Acute (4) Hypertension Status: Acute (5) Nephrotic syndrome Status: Acute (6) Depression Status: Acute
[2017-04-09] MEDS: Cefepime IV 1 gm in Dextrose 1 GM/50 ML BAG IVPB SCH ×3 (04:21→21:31)
[2017-04-09 08:41] LABS: CHLORIDE 104 mmol/L (98-107); POTASSIUM 3.6 mmol/L (3.6-5.2); SODIUM 136 mmol/L (132-148)
[2017-04-09 08:44] LABS: BLOOD UREA NITROGEN 9 mg/dL (7-17); CARBON DIOXIDE 22 mmol/L (22-30); GFR AFRICAN-AMERICAN > 60; GLUCOSE,RANDOM 140 mg/dL (65-105)
[2017-04-09 08:45] LABS: CALCIUM 8.5 mg/dl (8.6-10.4)
--- NOTE | 2017-04-09 12:58 | PN ---
DATE: 04/09/2017 Today, patient is alert and awake. Denied any abdominal pain. No chest pain. No shortness of breat h and denied any dysuria. PHYSICAL EXAMINATION: VITAL SIGNS: The patient has a blood pressure of 132/80, pulse 63, respirations 20, temperature 98.3 . NECK: Supple. LUNGS: Clear. HEART: Regular rate and rhythm. ABDOMEN: Soft and very mild left tenderness. EXTREMITIES: There is no edema. BLOOD TESTS: Show that WBC yesterday was 10.8, hemoglobin 10.4, hematocrit 32.1. The chemistry show ed that the sodium 136, potassium 3.6, chloride 104, bicarb is 22, BUN 9, creatinine 0.8, the glucose . PLAN: We are going to therapy and we will repeat the CBC and CMP . Jean Claude Glass MD cc: [id number] TT: 04/09/2017 12:57:49 Confirmation # [id number] Dictation # [id number]
[2017-04-10] MEDS: Cefepime IV 1 gm in Dextrose 1 GM/50 ML BAG IVPB SCH ×2 (05:47→13:00)
[2017-04-10 07:18] VITALS: BP 135/72; PULSE 68; TEMP 98; O2SAT 97
[2017-04-10 08:31] LABS: BASO # 0.1 K/uL (0.0-0.2); BASO % 0.6 % (0.0-2.0); EOS # 0.2 K/uL (0.0-0.7); EOS % 2.2 % (0.0-4.0); HEMATOCRIT 36.1 % (34.0-47.0); LYMPH # 3.5 K/uL (1.0-4.3); LYMPH % 31.1 % (20.0-40.0); MEAN CELL VOLUME 93.4 fL (81.0-99.0); MEAN CORPUSCULAR HGB CONC 32.1 g/dL (33.0-37.0); MEAN PLATELET VOLUME 10.7 fL (7.2-11.7); MONO # 0.8 K/uL (0.0-0.8); MONO % 7.1 % (0.0-10.0); WHITE BLOOD COUNT 11.3 K/uL (4.8-10.8)
[2017-04-10 08:54] LABS: CHLORIDE 100 mmol/L (98-107)
[2017-04-10 08:55] LABS: POTASSIUM 3.8 mmol/L (3.6-5.2); SODIUM 139 mmol/L (132-148)
[2017-04-10 08:57] LABS: ALB/GLOB RATIO 1.1 (1.0-2.1); ALKALINE PHOSPHATASE 69 U/L (38-126); AST/SGOT 55 U/L (14-36); BILIRUBIN,TOTAL 0.7 mg/dL (0.2-1.3); CARBON DIOXIDE 27 mmol/L (22-30); GFR AFRICAN-AMERICAN > 60
[2017-04-10 08:58] LABS: ALT/SGPT 53 U/L (9-52); BLOOD UREA NITROGEN 10 mg/dL (7-17); GLUCOSE,RANDOM 93 mg/dL (65-105)
[2017-04-10] MEDS ORDERED: Pantoprazole 40 mg EC Tab PO SCH (10:00)
--- NOTE | 2017-04-10 17:07 | CP.PCM.PN ---
Subjective - Date & Time of Evaluation Date of Evaluation: 04/10/17 Time of Evaluation: 11:00 - Subjective Subjective: Alert, awake, NAD. Objective - Vital Signs/Intake and Output Vital Signs (last 24 hours): Temp Pulse Resp BP Pulse Ox 98.0 F 68 20 135/72 97 04/10/17 07:15 04/10/17 07:15 04/10/17 07:15 04/10/17 07:15 04/10/17 07:15 Intake and Output: 04/10/17 04/10/17 06:59 18:59 Intake Total 250 Balance 250 - Labs Labs: 04/10/17 08:25 04/10/17 08:25 Assessment and Plan - Assessment and Plan (Free Text) Assessment: Patient is seen and examined. Awake, alert, ambulatory. No sob or chest pains notes. D/W DR Fishman, discharge plan for today with po cipro for UTI for 3 days. Patient verbalized understanding of the instructions given.
--- NOTE | 2017-04-10 22:19 | PN ---
DATE: 04/10/2017 The patient today is alert and awake. Denied any chest pain, no shortness of breath. No dizziness. No palpitation. Denied also . PHYSICAL EXAMINATION: VITAL SIGNS: The patient has a blood pressure of 126/72, later on 135/72; pulse 68; respirations 20; temperature 98. NECK: Supple. No JVD. LUNGS: Clear. HEART: Regular rate and rhythm. ABDOMEN: Soft, nontender. No palpable mass. EXTREMITIES: There is no edema. LABORATORY DATA: The patient's blood work has shown WBC 11.3, hemoglobin 11.6, hematocrit 36.1, and platelet 295. Chemistry: Sodium 139, potassium 3.8, chloride 100, bicarbonate 27, BUN 10, creatinin e 0.9, calcium 9. AST 65, ALT , alkaline phosphatase 69. PLAN: The patient comfortable, will be able to discharge the patient home on medications including C ipro and the current medications. Jean Claude Glass MD cc: [id number] TT: 04/10/2017 22:18:09 Confirmation # [id number] Dictation # [id number]
--- NOTE | 2017-04-11 07:27 | DS ---
HISTORY OF PRESENT ILLNESS: The patient is a 67-year-old female with history of nephrotic syndrome a nd hypertension. The patient came to my office and was complaining of abdominal pain, nausea and vom iting. The patient was found to have severe abdominal pain and tenderness of the abdomen and so the patient was sent to the Emergency Room for evaluation and the patient was admitted. ALLERGIES: The patient has no known allergy. PHYSICAL EXAMINATION: GENERAL: The patient is alert and awake. LUNGS: Clear. HEART: . ABDOMEN: There was tenderness to the left flank. LABORATORY DATA: The patient had some tests done. She had an Transvag of the abdomen and pelvis. There was a nonobstr ucting stone in the left kidney and also the patient had a urine that was positive for a WBC of 14 an d RBC 23 and also . Also, the CBC has shown that 0.4, hemoglobin 35.9 and platelet s were 253. So the patient was admitted with a diagnosis of urosepsis and hypertension and also nephritic syndrom e and depression. The patient had a consult with Arun López. The patient had a consult Dr. Arun López and also the patient has received . Now the patient i s doing much better and asymptomatic and the urine culture was positive for E. coli, sensitive to Cip ro and also Rocephin. The patient has received a prescription in the hospital, but now is going to h ave Cipro upon discharge. Jean Claude Glass MD cc: [id number] TT: 04/10/2017 21:52:49 04/11/2017 06:26:31
== END 2017-04-10 13:09 | disposition home or self-care (01) | DRG 690 ==
LOC: C.ER 15:25 → C.9E 16:02 → C.3T 18:46 → OBSVTOIN 04-06 15:49
PROVIDERS: ADMIT Specialist; ATTEND Specialist
DX: N10 Acute pyelonephritis (principal); K27.9 Peptic ulcer, site unspecified, unspecified as acute or chronic, without hemorrhage or perforation; I10 Essential (primary) hypertension; E78.00 Pure hypercholesterolemia, unspecified; F32.9 Major depressive disorder, single episode, unspecified; N04.9 Nephrotic syndrome with unspecified morphologic changes; B96.20 Unspecified Escherichia coli [E. coli] as the cause of diseases classified elsewhere; N20.0 Calculus of kidney; N85.00 Endometrial hyperplasia, unspecified; Z98.51 Tubal ligation status